=== PATIENT | male | born 1965 | race Caucasian/White ===

== ENCOUNTER 2017-10-14 23:57 | Emergency (ER) | payer OTHER ==
[~2017-10-14] VITALS: Ht 175.3 cm; Wt 100.1 kg
[2017-10-15 00:30] LABS: BASOPHIL (%) 0.3 % (0-1); EOSINOPHIL (%) 0 % (0-5); HEMATOCRIT 46.9 % (38.0-50.0); HEMOGLOBIN 16.7 G/DL (12.5-16.6); IMMATURE GRANULOCYTE (%) 0.3 % (0.0-0.7); LYMPHOCYTE (%) 9.2 % (15-42); LYMPHOCYTE COUNT 0.9 K/uL (1.0-2.8); MCH 32.6 PG (29.0-34.0); MCHC 35.6 G/DL (30.0-36.0); MCV 91.6 FL (86-99); MONOCYTE (%) 3.3 % (3-12); MONOCYTE COUNT 0.3 K/uL (0-0.8); NEUTROPHIL (%) 86.9 % (45-76); NEUTROPHIL COUNT 8.7 K/uL (1.8-6.4); PLATELET COUNT 200 K/uL (156-360); RBC DIS.WIDTH-CV 12.5 % (11.8-14.6); RBC DIS.WIDTH-SD 42.2 % (39-53); RED BLOOD COUNT 5.12 M/uL (4.00-5.50)
[2017-10-15 00:57] LABS: ALBUMIN 4.9 G/DL (3.2-4.8); CHLORIDE 102 MEQ/L (99-109); DIRECT BILIRUBIN 0.2 mg/dL (0.0-0.3); SODIUM 136 MEQ/L (136-147); TOTAL BILIRUBIN 1.4 MG/DL (0.0-1.0)
[2017-10-15 01:03] LABS: ALKALINE PHOSPHATASE 87 IU/L (3-129); ALT (GPT) 31 IU/L (3-49); AST (GOT) 38 IU/L (2-34); GFR ESTIMATE (CALCULATED) > 59 mL/min/ (58.99-99999); GLUCOSE 136 mg/dL (70-99); LIPASE 17 U/L (1.0-51.0); TOTAL PROTEIN 7.5 G/DL (6.4-8.3); UREA NITROGEN (BUN) 27 mg/dL (9-23)
[2017-10-15 01:04] LABS: POTASSIUM 5.8 MEQ/L (3.7-5.4)
[2017-10-15 05:54] VITALS: BP 158/90
== END 2017-10-15 05:40 | disposition short-term general hospital (02) ==
LOC: EME → EDBD 23:57 → EME 23:57
PROVIDERS: Emergency Medicine
DX: K56.609 Unspecified intestinal obstruction, unspecified as to partial versus complete obstruction (principal); Z90.49 Acquired absence of other specified parts of digestive tract
CPT/HCPCS: 74177; 80048; 80076; 83605; 83690; 85025; 99281; 99285; J0500; J2270; J7030